=== PATIENT | male | born 1980 | race Caucasian/White ===

== ENCOUNTER → 2017-03-25 | Outpatient (CLI) | payer MEDICAID ==
[2017-03-25 11:14] LABS: LYMPH # 2.3 K/mm3 (0.7-4.5); LYMPH % 28.5 % (10-50)
[2017-03-25 13:53] LABS: BUN 12 mg/dL (7-18)
[2017-03-25 13:57] LABS: GFR (ESTIMATED) 109 ML/MIN (>60)
== END ==
LOC: LAB 09:37
PROVIDERS: Otolaryngology
DX: J34.3 Hypertrophy of nasal turbinates (principal); J34.9 Unspecified disorder of nose and nasal sinuses; J34.2 Deviated nasal septum; Z01.812 Encounter for preprocedural laboratory examination

== ENCOUNTER 2017-04-09 06:06 | Day surgery (SDC) | payer MEDICAID ==
[~2017-04-09] VITALS: Ht 172.7 cm; Wt 81.6 kg
--- NOTE | 2017-04-09 09:00 | Anesthesia Record ---
Anesthesia Record Part I Total IV fluids: 1400 EBL (ml): 10 Urine Output: 0 B/P: 117/62 % SaO2: 100 Pulse: 99 Resps: 12 Temp: 97.2 Patient is: Awake, Stable Stable to PACU at: 0900 at 0900
--- NOTE | 2017-04-09 09:01 | Anesthesia Record ---
Anesthesia Record Part II Discharge time: 929 Destination: Same day surgery PACU nurse assessment review? Yes Patient is: Awake, Stable Anesthesia complications? No at 0900
--- NOTE | 2017-04-09 13:32 | Operative Note ---
Other ENT Procedure Date of Procedure: 04/09/17 Time of Procedure: 729 Procedure performed: 1. Nasal septoplasty 2. Functional endoscopic sinus surgery with RIGHT intranasal maxillary antrostomy with removal of tissue 3. Functional endoscopic sinus surgery with LEFT conchal bullosa resection 4. Submucous resection RIGHT inferior turbinate Pre-op diagnosis: 1. Deviated nasal septum 2. Chronic RIGHT maxillary sinusitis with cyst 3. LEFT conchal bullosa 4. RIGHT inferior hypertrophied turbinate Post-op diagnosis: same Surgeon: Jagdeep Apodaca Anesthesia: general Pre-procedure antibiotics: Ancef 1 gm Pre-procedure steroid: Decadron 12 mg Description of procedure: With patient under general anesthesia, the eyes were protected with Steri-Strips , the face was prepped and draped. The nose was decongested with topical cocaine and 5 mL of 2 percent lidocaine with epi were injected into the nasal antral jara and septum. A LEFT hemitransfixion incision was made and the mucoperichondrium and mucoperiosteum was elevated from both sides of the nasal septum. There was a severe deviation of the nasal septum to the RIGHT posteriorly and to the LEFT anteriorly. The quadrangular cartilage was from the maxillary crest and vomer and trimmed inferiorly and posteriorly. A very large vomerine spur was removed. The maxillary crest was narrowed. And the perpendicular plate of the ethmoid was straightened and placed in the midline. When that was done the septum could be realigned in the midline it was held there with transfixion and hemitransfixion chromic sutures. Surgicel snow had been placed between the flaps. Using endoscopic sinus surgical techniques and instruments a RIGHT intranasal maxillary antrostomy was done. The ostiomeatal complexes opened and thickened mucosa and cystic polypoid material was removed from the RIGHT maxillary sinus and submitted. The sinus was then irrigated until all of the returns were clear. Using similar endoscopic instruments and techniques the middle turbinate jane bullosa was resected. Bleeding was stopped with bipolar cautery. Surgicel snow was placed in the cavity of the turbinate. Using cautery techniques and turbinectomy scissors a RIGHT submucosal turbinectomy was done in the RIGHT inferior turbinate was reduced by 50 percent. Blood loss for all the procedures less than 10 mL and completely stopped. Cortisporin ointment was placed in the nasal vestibules, a drip pad dressing was applied, and patient was sent to recovery in good general condition. EBL (ml): 2 at 2535
[2017-04-09 14:35] VITALS: BP 125/69
== END 2017-04-09 10:35 | disposition home or self-care (01) ==
LOC: SDC 06:06
PROVIDERS: Otolaryngology
PROC: 09BM8ZZ Excision of Nasal Septum, Via Natural or Artificial Opening Endoscopic (ICD-10-PCS; principal; 2017-04-09 07:30)
DX: J34.2 Deviated nasal septum (principal); J32.0 Chronic maxillary sinusitis; R23.8 Other skin changes; J34.3 Hypertrophy of nasal turbinates
CPT/HCPCS: J2405; J2710